=== PATIENT | male | born 1940 | race Caucasian/White ===

== ENCOUNTER 2017-07-21 08:31 | Day surgery (SDC) | payer MEDICARE, BC ==
[2017-07-21] MEDS ORDERED: Propofol 200 MG/20 ML SDV IV ONE (08:32)
[2017-07-21] MEDS ORDERED: fentaNYL 100 MCG/2 ML SDV IV ONE (08:32)
[2017-07-21] MEDS ORDERED: Ondansetron 4 MG/2 ML SDV IV ONE (08:32)
[2017-07-21] MEDS ORDERED: Midazolam 1 MG/ML 2 ML SDV IV ONE (08:32)
[2017-07-21] MEDS ORDERED: Glycopyrrolate 0.2 MG/ML 2 ML SDV IV ONE (08:32)
[2017-07-21] MEDS ORDERED: Lactated Ringers 1,000 ML IV SCH (09:00)
[2017-07-21] MEDS ORDERED: Scopolamine 1.5 MG Transdermal Patch TRDERM ONE (09:30)
[2017-07-21] MEDS ORDERED: Scopolamine 1.5 MG Transdermal Patch ONE (09:35)
[2017-07-21] MEDS ORDERED: Famotidine 20 MG/2 ML SDV IVPUSH ONE (09:47)
[2017-07-21] MEDS ORDERED: Famotidine 20 MG/2 ML SDV ONE (09:53)
[2017-07-21] MEDS ORDERED: ceFAZolin 1 GM in Premix Bag 1 BAG IV ONE (10:00)
[2017-07-21] MEDS ORDERED: Lidocaine 1% 30 ML SDV ONE ×2 (10:11→10:14)
[2017-07-21] MEDS ORDERED: Lidocaine 1% 30 ML SDV INJECT ONE ×2 (10:42→11:11)
[2017-07-21] MEDS ORDERED: Acetaminophen/oxyCODONE 325-5 MG Tab PO PRN (12:55)
[2017-07-21 14:22] VITALS: BP 154/89
--- NOTE | 2017-07-21 19:44 | OR ---
DATE: 07/21/2017 PREOPERATIVE DIAGNOSIS: Right inguinal hernia. POSTOPERATIVE DIAGNOSIS: Right inguinal hernia. PROCEDURES: Open repair of indirect right inguinal hernia. ANESTHESIA: General. ESTIMATED BLOOD LOSS: Minimal. SPECIMEN: Hernia sac. INDICATION FOR PROCEDURE: This 77-year-old male has a symptomatic right inguinal hernia. He has had this for several months. It shows no signs of incarceration. This is a primary hernia. DESCRIPTION OF PROCEDURE: After adequate preparation of right lower quadrant, incision was made over the inguinal canal and carried down through the external oblique. The cord structures and hernia sac were elevated out of the inguinal canal and the hernia sac was dissected free from the cord structures down to the deep inguinal ring. At that point, a clamp was placed across the base of the hernia sac and the distal sac amputated. The hernia sac was then closed using a Vicryl stick tie suture. A piece of Prolene mesh was fashioned to fit it over the inguinal floor. This was fixated to the inguinal ligament with a running 0 Prolene suture and interrupted Prolene sutures for the superior aspect on the rectus sheath. The keyhole had been cut in the mesh and the tails were encircled around the cord structures, as it came through the deep ring, 1 stay suture was closed used to close the keyhole laterally. No abnormalities otherwise were noted. The external oblique was closed over the inguinal canal and cord. The Isidro fascia was closed with an intracuticular Vicryl used for the skin. [facility] /[id number]
--- NOTE | 2017-07-24 15:41 | EKG ---
DATE: 07/21/2017 This 12-lead EKG shows a normal sinus rhythm with a ventricular rate of 65. Normal axis and intervals. No acute ST-segment or T-wave changes. [facility] /[id number]
== END 2017-07-21 14:46 | disposition home or self-care (01) ==
LOC: DL.SDS 08:31
PROVIDERS: ATTEND Surgery
DX: K40.90 Unilateral inguinal hernia, without obstruction or gangrene, not specified as recurrent (principal); Z79.82 Long term (current) use of aspirin; Z79.899 Other long term (current) drug therapy
CPT/HCPCS: 49505; A9270; J0690; J2250; J2405; J2704; J3010; J7120; 00832; 88302; C1781; J3490; S0028

== ENCOUNTER 2017-07-22 22:20 | Emergency (ER) | payer MEDICARE, BC ==
[2017-07-22 22:38] VITALS: BP 118/84
--- NOTE | 2017-07-22 22:49 | EDM.PDOC ---
ED HPI GENERAL MEDICAL PROBLEM - General Chief Complaint: Gastrointestinal Problem Stated Complaint: CONSTIPATED [id number] Time Seen by Provider: 07/22/17 22:35 Source of Information: Reports: Patient History Limitations: Reports: No Limitations - History of Present Illness INITIAL COMMENTS - FREE TEXT/NARRATIVE: ED with complaint of severe abdominal pain with voiting. Reports recent hernia surgery. Constipated, Today has been trying multiple laxative thourghout the day and pain keeps getting worse. Abdomen Pain Score (Numeric/FACES): 10 - Related Data Allergies Allergy/AdvReac Type Severity Reaction Status Date / Time No Known Allergies Allergy Verified 07/21/17 09:06 Home Meds: Home Meds Calcium Carbonate/Vitamin D3 [Calcium 500 + Vit D 200 Tablet] 1 tab PO .QOD [History] Multivitamin with Minerals [Multiple Vitamin] 1 tab PO .QOD 11/01/13 [History] Pantoprazole [Protonix] 40 mg PO BID 11/01/13 [History] atorvaSTATin [Lipitor] 1 tab PO BEDTIME 11/01/13 [History] Ibuprofen 1 tab PO Q6H PRN 09/20/15 [History] Finasteride [Finasteride] 1 tab PO BEDTIME 06/24/17 [History] Meclizine [Antivert] 1 tab PO ASDIRECTED PRN 07/21/17 [History] Past Medical History HEENT History: Reports: Cataract, Hard of Hearing, Impaired Vision, Other (See Below) Other HEENT History: MENIARI'S DISEASE. WEARS CORRECTIVE LENS Cardiovascular History: Reports: High Cholesterol Respiratory History: Reports: None Gastrointestinal History: Reports: GERD Genitourinary History: Reports: BPH, Prostate Disorder Musculoskeletal History: Reports: Arthritis, Osteoarthritis, Other (See Below) Other Musculoskeletal History: carpal tunnel syndrome Neurological History: Reports: None Psychiatric History: Reports: None Endocrine/Metabolic History: Reports: None Hematologic History: Reports: None Immunologic History: Reports: None Oncologic (Cancer) History: Reports: None Dermatologic History: Reports: None - Infectious Disease History Infectious Disease History: Reports: Chicken Pox, Measles, Mumps - Past Surgical History HEENT Surgical History: Reports: None Cardiovascular Surgical History: Reports: None Respiratory Surgical History: Reports: None GI Surgical History: Reports: Colonoscopy, EGD, Hernia Repair/Other Male Surgical History: Reports: Vasectomy Endocrine Surgical History: Reports: None Neurological Surgical History: Reports: None Musculoskeletal Surgical History: Reports: Shoulder Surgery, Other (See Below) Other Musculoskeletal Surgeries/Procedures:: carpal tunnel Oncologic Surgical History: Reports: None Dermatological Surgical History: Reports: None Social & Family History - Tobacco Use Smoking Status *Q: Never Smoker Second Hand Smoke Exposure: No - Caffeine Use Caffeine Use: Reports: Soda Caffeine Use Comment: SOFT DRINKS - DRINKS SUGAR FREEE DRINKS - Alcohol Use Days Per Week of Alcohol Use: 4 Number of Drinks Per Day: 2 Total Drinks Per Week: 8 - Recreational Drug Use Recreational Drug Use: No Drug Use in Last 12 Months: No ED ROS GENERAL - Review of Systems Review Of Systems: See Below Constitutional: Reports: No Symptoms HEENT: Reports: No Symptoms Respiratory: Reports: No Symptoms Cardiovascular: Reports: No Symptoms GI/Abdominal: Reports: Abdominal Pain, Distension, Nausea, Vomiting : Reports: No Symptoms Skin: Reports: Other (right hernia inscision) ED EXAM, GI/ABD - Physical Exam Exam: See Below Exam Limited By: No Limitations General Appearance: Alert Ears: Normal External Exam, Normal TMs Nose: Normal Inspection Throat/Mouth: Normal Inspection Head: Atraumatic, Normocephalic Neck: Normal Inspection Respiratory/Chest: No Respiratory Distress, Lungs Clear, Normal Breath Sounds, Chest Non-Tender Cardiovascular: Normal Peripheral Pulses, Regular Rate, Rhythm GI/Abdominal Exam: Distended, Guarding, Tender, Abnormal Bowel Sounds ( hyperactive) Back Exam: Normal Inspection Extremities: Normal Inspection Neurological: Alert, Oriented, Normal Cognition Psychiatric: Anxious Skin Exam: Warm, Dry, Other (surgical dressing right inguinal intact dry) Course - Vital Signs Last Recorded V/S: Last Vital Signs Temp 98.1 F 07/22/17 22:34 Pulse 88 07/22/17 22:34 Resp 18 07/22/17 22:34 BP 118/84 07/22/17 22:34 Pulse Ox 98 07/22/17 22:34 - Orders/Labs/Meds Orders: Active Orders 24 hr Category Date Time Status Enema [RC] ASDIRECTED Care 07/23/17 00:05 Active NG [Nasogastric Orogastric Tube Insertion] [OM.PC] Oth 07/22/17 23:09 Ordered Routine Labs: Laboratory Tests 07/22/17 07/22/17 Range/Units 23:12 23:12 WBC 17.4 H (5.0-10.0) 10^3/uL RBC 4.67 (4.6-6.2) 10^6/uL Hgb 15.3 (14.0-18.0) g/dL Hct 44.5 (40.0-54.0) % MCV 95.3 (80-100) fL MCH 32.8 (27.0-34.0) pg MCHC 34.4 (33.0-35.0) g/dL Plt Count 285 (150-450) 10^3/uL Neut % (Auto) 82.9 H (42.2-75.2) % Lymph % (Auto) 8.5 L (20.5-50.1) % [place] % (Auto) 8.2 H (2-8) % Eos % (Auto) 0.2 L (1.0-3.0) % Baso % (Auto) 0.2 (0.0-1.0) % Sodium 134 L (135-145) mmol/L Potassium 4.1 (3.6-5.0) mmol/L Chloride 98 L (101-111) mmol/L Carbon Dioxide 24.0 (21.0-31.0) mmol/L Anion Gap 16.1 BUN 20 H (7-18) mg/dL Creatinine 0.9 (0.6-1.3) mg/dL Est Cr Clr Drug Dosing 63.70 mL/min Estimated GFR (MDRD) > 60 BUN/Creatinine Ratio 22.22 Glucose 147 H (74-105) mg/dL Calcium 9.6 (8.4-10.2) mg/dl Total Bilirubin 0.5 (0.2-1.0) mg/dL AST 24 (10-42) IU/L ALT 16 (10-60) IU/L Alkaline Phosphatase 65 (42-121) IU/L Total Protein 7.8 (6.7-8.2) g/dl Albumin 4.4 (3.2-5.5) g/dl Globulin 3.4 Albumin/Globulin Ratio 1.29 Meds: Medications Discontinued Medications Generic Name Dose Route Start Last Admin Trade Name Freq PRN Reason Stop Dose Admin Morphine Sulfate 2 mg 07/22/17 23:07 07/22/17 23:19 Morphine IVPUSH 07/22/17 23:08 2 mg ONETIME ONE Administration Ondansetron HCl 4 mg 07/22/17 23:04 07/22/17 23:17 Zofran IV 07/22/17 23:05 4 mg ONETIME ONE Administration - Radiology Interpretation Free Text/Narrative:: Xray Abdomen: moderate amount stool throughout - Re-Assessments/Exams Free Text/Narrative Re-Assessment/Exam: 07/23/17 03:49 NG placed briefly with relief of upper gastric pressure, Radiologist report of xray confirm no ilieus or obstruction, To nursing floor for enemas with maribell results, Pain resolved, minimal cramping. Departure - Departure Time of Disposition: 00:53 Disposition: Home, Self-Care 01 Condition: Good Clinical Impression: Constipation, Abdominal pain - Discharge Information Instructions: Constipation, Adult, [id number] Referrals: PCP,None [Primary Care Provider] - Forms: ED Department Discharge Additional Instructions: light diet advance slowly miralax one capful daily with at least 8 ounces of liquid daily, if loose stools may decrease follow up if vomiting worsening abdominal pain - My Orders Last 24 Hours: My Active Orders 07/22/17 23:09 NG [Nasogastric Orogastric Tube Insertion] [OM.PC] Routine 07/23/17 00:05 Enema [RC] ASDIRECTED - Assessment/Plan Last 24 Hours: My Active Orders 07/22/17 23:09 NG [Nasogastric Orogastric Tube Insertion] [OM.PC] Routine 07/23/17 00:05 Enema [RC] ASDIRECTED
[2017-07-22] MEDS ORDERED: Ondansetron 4 MG/2 ML SDV IV ONE (23:04)
[2017-07-22] MEDS ORDERED: Morphine 2 MG/ML Syringe IVPUSH ONE (23:07)
[2017-07-22 23:39] LABS: CHLORIDE,CL 98 mmol/L (101-111); SODIUM,NA 134 mmol/L (135-145)
== END 2017-07-23 01:05 | disposition home or self-care (01) ==
LOC: DL.ED 22:20
DX: K59.00 Constipation, unspecified (principal); E78.00 Pure hypercholesterolemia, unspecified; K21.9 Gastro-esophageal reflux disease without esophagitis
CPT/HCPCS: 36415; 43752; 74018; 80053; 85025; 96374; 96375; 99284; J2270; J2405

== ENCOUNTER 2018-07-23 15:01 | Emergency (ER) | payer MEDICARE, BC ==
--- NOTE | 2018-07-23 15:12 | EDM.PDOC ---
ED HPI GENERAL MEDICAL PROBLEM - General Chief Complaint: Neurological Problem Stated Complaint: CONFUSIONS,FORGETFULNESS [id number] Time Seen by Provider: 07/23/18 15:09 Source of Information: Reports: Patient, Family, Old Records, RN, RN Notes Reviewed History Limitations: Reports: No Limitations - History of Present Illness INITIAL COMMENTS - FREE TEXT/NARRATIVE: Pt presents from home by POV brought by with c/o confusion and forgetfulness that began today at 0930HRS and lasted a couple of hours. The pt states he knew something wasn't right, but his does not think he realized how profound his confusion and memory loss was. By the time they decided to come to the ER the symptoms had completely resolved. He reports a similar episode occurred around giving, but did not last this long and he did not seek treatment in the ER at that time. Pt denies headache, chest pain, palpitations, rapid HR, nausea, visual changes, slurred speech, facial droop, or difficulty swallowing. He has history of Menieres Disease. Duration: Constant Location: Reports: Generalized Severity: Moderate Improves with: Reports: None Worsens with: Reports: None Associated Symptoms: Reports: No Other Symptoms - Related Data Allergies Allergy/AdvReac Type Severity Reaction Status Date / Time No Known Allergies Allergy Verified 07/23/18 15:41 Home Meds: Home Meds Pantoprazole [Protonix] 40 mg PO BID 11/01/13 [History] atorvaSTATin [Lipitor] 1 tab PO BEDTIME 11/01/13 [History] Past Medical History HEENT History: Reports: Cataract, Hard of Hearing, Impaired Vision, Other (See Below) Other HEENT History: MENIERE'S DISEASE. WEARS CORRECTIVE LENS Cardiovascular History: Reports: High Cholesterol Respiratory History: Reports: None Gastrointestinal History: Reports: GERD Genitourinary History: Reports: BPH, Prostate Disorder Musculoskeletal History: Reports: Arthritis, Osteoarthritis, Other (See Below) Other Musculoskeletal History: carpal tunnel syndrome Neurological History: Reports: None Psychiatric History: Reports: None Endocrine/Metabolic History: Reports: None Hematologic History: Reports: None Immunologic History: Reports: None Oncologic (Cancer) History: Reports: None Dermatologic History: Reports: None - Infectious Disease History Infectious Disease History: Reports: Chicken Pox, Measles, Mumps - Past Surgical History HEENT Surgical History: Reports: None Cardiovascular Surgical History: Reports: None Respiratory Surgical History: Reports: None GI Surgical History: Reports: Colonoscopy, EGD, Hernia Repair/Other Male Surgical History: Reports: Vasectomy Endocrine Surgical History: Reports: None Neurological Surgical History: Reports: None Musculoskeletal Surgical History: Reports: Shoulder Surgery, Other (See Below) Other Musculoskeletal Surgeries/Procedures:: carpal tunnel Oncologic Surgical History: Reports: None Dermatological Surgical History: Reports: None Social & Family History - Family History Family Medical History: Noncontributory - Tobacco Use Smoking Status *Q: Never Smoker - Caffeine Use Caffeine Use: Reports: Soda Caffeine Use Comment: SOFT DRINKS - DRINKS SUGAR FREEE DRINKS - Alcohol Use Alcohol Use History: No - Living Situation & Occupation Living situation: Reports: , with Spouse Occupation: Retired ED ROS GENERAL - Review of Systems Review Of Systems: ROS reveals no pertinent complaints other than HPI. ED EXAM, GENERAL - Physical Exam Exam: See Below Exam Limited By: No Limitations General Appearance: Alert, WD/WN, No Apparent Distress Eye Exam: Bilateral Eye: EOMI, Normal Inspection, PERRL Ears: Normal External Exam Nose: Normal Inspection, Normal Mucosa, No Blood Throat/Mouth: Normal Inspection, Normal Lips, Normal Oropharynx, Normal Voice, No Airway Compromise Head: Atraumatic, Normocephalic Neck: Normal Inspection, Supple, Non-Tender, Full Range of Motion. No: Carotid Bruit, Lymphadenopathy (L), Lymphadenopathy (R) Respiratory/Chest: No Respiratory Distress, Lungs Clear, Normal Breath Sounds, No Accessory Muscle Use, Chest Non-Tender Cardiovascular: Normal Peripheral Pulses, Regular Rate, Rhythm, No Edema, No Gallop, No JVD, No Murmur, No Rub GI/Abdominal: Normal Bowel Sounds, Soft, Non-Tender, No Distention, No Abnormal Bruit (Male) Exam: Deferred Rectal (Males) Exam: Deferred Back Exam: Normal Inspection, Full Range of Motion, NT Extremities: Normal Inspection, Normal Range of Motion, Non-Tender, Normal Capillary Refill, No Pedal Edema Neurological: Alert, Oriented, CN II-XII Intact, Normal Cognition, Normal Gait, Normal Reflexes, No Motor/Sensory Deficits Psychiatric: Normal Affect, Normal Mood Skin Exam: Warm, Dry, Intact, Normal Color, No Rash EKG INTERPRETATION EKG Date: 07/23/18 Time: 15:52 Rhythm: Other (Sinus rhythm) Rate (Beats/Min): 75 [place]: Normal P-Wave: Present QRS: Other (PVC) ST-T: Normal QT: Normal Comparison: NA - No Prior EKG Course - Vital Signs Last Recorded V/S: Last Vital Signs Temp 36.6 C 07/23/18 15:15 Pulse 82 07/23/18 15:15 Resp 16 07/23/18 15:15 BP 142/82 H 07/23/18 15:15 Pulse Ox 97 07/23/18 15:15 - Orders/Labs/Meds Orders: Active Orders 24 hr Category Date Time Status Blood Glucose Check, Bedside [RC] ONETIME Care 07/23/18 15:21 Active EKG 12 Lead [EKG Documentation Completion] [RC] STAT Care 07/23/18 15:21 Active INR,PT,PROTHROMBIN TIME [COAG] Stat Lab 07/23/18 15:29 Received PTT,PARTIAL THROMBOPLSTIN TIME [COAG] Stat Lab 07/23/18 15:29 Received Labs: Laboratory Tests 07/23/18 07/23/18 07/23/18 Range/Units 15:21 15:21 15:29 WBC 7.6 (5.0-10.0) 10^3/uL RBC 4.41 L (4.6-6.2) 10^6/uL Hgb 14.6 (14.0-18.0) g/dL Hct 41.9 (40.0-54.0) % MCV 95.0 (80-100) fL MCH 33.1 (27.0-34.0) pg MCHC 34.8 (33.0-35.0) g/dL Plt Count 288 (150-450) 10^3/uL Neut % (Auto) 70.2 (42.2-75.2) % Lymph % (Auto) 16.2 L (20.5-50.1) % [place] % (Auto) 11.6 H (2-8) % Eos % (Auto) 1.7 (1.0-3.0) % Baso % (Auto) 0.3 (0.0-1.0) % Sodium (135-145) mmol/L Potassium (3.6-5.0) mmol/L Chloride (101-111) mmol/L Carbon Dioxide (21.0-31.0) mmol/L Anion Gap BUN (7-18) mg/dL Creatinine (0.6-1.3) mg/dL Est Cr Clr Drug Dosing Estimated GFR (MDRD) BUN/Creatinine Ratio Glucose (74-105) mg/dL POC Glucose (83-110) mg/dl Calcium (8.4-10.2) mg/dl Total Bilirubin (0.2-1.0) mg/dL AST (10-42) IU/L ALT (10-60) IU/L Alkaline Phosphatase (42-121) IU/L Troponin I (0.00-0.02) ng/ml Total Protein (6.7-8.2) g/dl Albumin (3.2-5.5) g/dl Globulin Albumin/Globulin Ratio Urine Color Yellow (YELLOW) Urine Appearance Slightly cloudy (CLEAR) Urine pH 5.5 (5.0-9.0) Ur Specific [place] 1.020 (1.005-1.030) Urine Protein Negative (NEGATIVE) Urine Glucose (UA) Negative (NEGATIVE) Urine Ketones Negative (NEGATIVE) Urine Occult Blood Trace-intact H (NEGATIVE) Urine Nitrite Negative (NEGATIVE) Urine Bilirubin Negative (NEGATIVE) Urine Urobilinogen 0.2 (0.2-1.0) mg/dL Ur Leukocyte Esterase Negative (NEGATIVE) Urine RBC 0-5 /HPF Urine WBC Not seen (0-5/HPF) /HPF Ur Epithelial Cells Rare /HPF Urine Bacteria Rare (0-FEW/HPF) /HPF Urine Mucus Few H /LPF Urine Opiates Screen Negative (NEGATIVE) Ur Oxycodone Screen Negative (NEGATIVE) Urine Methadone Screen Negative (NEGATIVE) Ur Barbiturates Screen Negative (NEGATIVE) U Tricyclic Antidepress Negative (NEGATIVE) Ur Phencyclidine Scrn Negative (NEGATIVE) Ur Amphetamine Screen Negative (NEGATIVE) U Methamphetamines Scrn Negative (NEGATIVE) Urine MDMA Screen Negative (NEGATIVE) U Benzodiazepines Scrn Negative (NEGATIVE) Urine Cocaine Screen Negative (NEGATIVE) U Marijuana (THC) Screen Negative (NEGATIVE) 07/23/18 07/23/18 Range/Units 15:29 15:33 WBC (5.0-10.0) 10^3/uL RBC (4.6-6.2) 10^6/uL Hgb (14.0-18.0) g/dL Hct (40.0-54.0) % MCV (80-100) fL MCH (27.0-34.0) pg MCHC (33.0-35.0) g/dL Plt Count (150-450) 10^3/uL Neut % (Auto) (42.2-75.2) % Lymph % (Auto) (20.5-50.1) % [place] % (Auto) (2-8) % Eos % (Auto) (1.0-3.0) % Baso % (Auto) (0.0-1.0) % Sodium 136 (135-145) mmol/L Potassium 3.8 (3.6-5.0) mmol/L Chloride 103 (101-111) mmol/L Carbon Dioxide 23.0 (21.0-31.0) mmol/L Anion Gap 13.8 BUN 19 H (7-18) mg/dL Creatinine 0.9 (0.6-1.3) mg/dL Est Cr Clr Drug Dosing TNP Estimated GFR (MDRD) > 60 BUN/Creatinine Ratio 21.11 Glucose 112 H (74-105) mg/dL POC Glucose 105 (83-110) mg/dl Calcium 9.2 (8.4-10.2) mg/dl Total Bilirubin 0.7 (0.2-1.0) mg/dL AST 23 (10-42) IU/L ALT 18 (10-60) IU/L Alkaline Phosphatase 66 (42-121) IU/L Troponin I < 0.02 (0.00-0.02) ng/ml Total Protein 7.4 (6.7-8.2) g/dl Albumin 4.3 (3.2-5.5) g/dl Globulin 3.1 Albumin/Globulin Ratio 1.39 Urine Color (YELLOW) Urine Appearance (CLEAR) Urine pH (5.0-9.0) Ur Specific [place] (1.005-1.030) Urine Protein (NEGATIVE) Urine Glucose (UA) (NEGATIVE) Urine Ketones (NEGATIVE) Urine Occult Blood (NEGATIVE) Urine Nitrite (NEGATIVE) Urine Bilirubin (NEGATIVE) Urine Urobilinogen (0.2-1.0) mg/dL Ur Leukocyte Esterase (NEGATIVE) Urine RBC /HPF Urine WBC (0-5/HPF) /HPF Ur Epithelial Cells /HPF Urine Bacteria (0-FEW/HPF) /HPF Urine Mucus /LPF Urine Opiates Screen (NEGATIVE) Ur Oxycodone Screen (NEGATIVE) Urine Methadone Screen (NEGATIVE) Ur Barbiturates Screen (NEGATIVE) U Tricyclic Antidepress (NEGATIVE) Ur Phencyclidine Scrn (NEGATIVE) Ur Amphetamine Screen (NEGATIVE) U Methamphetamines Scrn (NEGATIVE) Urine MDMA Screen (NEGATIVE) U Benzodiazepines Scrn (NEGATIVE) Urine Cocaine Screen (NEGATIVE) U Marijuana (THC) Screen (NEGATIVE) - Radiology Interpretation Free Text/Narrative:: CT head: No sign of acute intracranial bleed. Microvascular ischemic changes and mild atrophy. No intracranial mass. No hydrocephalus. See rad report. Departure - Departure Time of Disposition: 16:44 Disposition: Home, Self-Care 01 Condition: Good Clinical Impression: TIA (transient ischemic attack), Transient global amnesia - Discharge Information *PRESCRIPTION DRUG MONITORING PROGRAM REVIEWED*: Not Applicable *COPY OF PRESCRIPTION DRUG MONITORING REPORT IN PATIENT MAYKEL: Not Applicable Instructions: Transient Global Amnesia, Stroke Prevention Forms: ED Department Discharge Additional Instructions: Take 'Enteric Coated Aspirin 325mg' one tablet every day. Call your neurologist at [facility] in [place] tomorrow to schedule an appointment for recheck and further stroke risk assessment. Return to ER if worse at any time. - My Orders Last 24 Hours: My Active Orders 07/23/18 15:21 Blood Glucose Check, Bedside [RC] ONETIME EKG 12 Lead [EKG Documentation Completion] [RC] STAT 07/23/18 15:29 INR,PT,PROTHROMBIN TIME [COAG] Stat PTT,PARTIAL THROMBOPLSTIN TIME [COAG] Stat - Assessment/Plan Last 24 Hours: My Active Orders 07/23/18 15:21 Blood Glucose Check, Bedside [RC] ONETIME EKG 12 Lead [EKG Documentation Completion] [RC] STAT 07/23/18 15:29 INR,PT,PROTHROMBIN TIME [COAG] Stat PTT,PARTIAL THROMBOPLSTIN TIME [COAG] Stat
[2018-07-23 15:16] VITALS: BP 142/82
[2018-07-23 15:58] LABS: ANION GAP 13.8; CHLORIDE,CL 103 mmol/L (101-111); SODIUM,NA 136 mmol/L (135-145)
--- NOTE | 2018-07-23 16:21 | CT ---
Clinical history: 78-year-old male with acute onset of confusion. CVA? No previous CT or MRI exams of the head at this institution. Scan technique: Volume acquisition of data emergency unenhanced CT scan of the head and brain obtained while the patient was lying supine on the Siemens multi slice scanner [place], [place]. All data archived in the PACS system for storage, reformatting axial/sagittal/coronal planes and study. Interpretation: 1. Uniformly thick bony calvarium without sign of skull fracture or underlying brain contusion or epidural/subdural hematoma. 2. Subtle microvascular ischemic changes periventricular white matter particularly frontal parietal lobe on the left. 3. No sign of acute intracerebral/intraventricular/subarachnoid bleed. 4. No supratentorial or posterior fossa mass lesion. 5. Cerebellum and brainstem unremarkable.. CONCLUSION: No sign of acute intracranial bleed. Microvascular ischemic changes and mild atrophy. No intracranial mass. No hydrocephalus.
== END 2018-07-23 16:55 | disposition home or self-care (01) ==
LOC: DL.ED 15:01
DX: G45.4 Transient global amnesia (principal)
CPT/HCPCS: 36415; 70450; 80053; 80305-QW; 81001; 82962; 84484; 85025; 85610; 85730; 93005; 99284

== ENCOUNTER 2018-09-30 07:30 | Day surgery (SDC) | payer MEDICARE, BC ==
[~2018-09-30 07:30] MED LIST: Acetaminophen 325 MG Tab PO PRN; Cataract Ophth Solution EYERT ONE; Moxifloxacin 0.5% Ophth Soln 3 ML Bottle EYERT ONE; Ondansetron 4 MG/2 ML SDV IVPUSH PRN; Phenylephrine 10% Ophth Soln 5 ML Bot EYERT ONE; Phenylephrine 10% Ophth Soln 5 ML Bot EYERT PRN; Povidone-Iodine 5% Sterile Ophth Soln 30 ML Bottle EYERT ONE; Proparacaine 0.5% Ophth Soln 15 ML Bottle EYERT ONE; Sodium Chloride 0.9% 10 ML Syringe FLUSH PRN; Timolol Maleate 0.5% Ophth Soln 5 ML Bottle EYERT ONE
[2018-09-30] MEDS ORDERED: Midazolam 1 MG/ML 2 ML SDV IV ONE (07:31)
[2018-09-30] MEDS ORDERED: Sodium Chloride 0.9% 10 ML Syringe IV ONE (07:31)
[2018-09-30] MEDS ORDERED: Dexamethasone 4 MG/ML SDV IV ONE (07:31)
[2018-09-30] MEDS ORDERED: Tetracaine HCl/PF 0.5% 4 ML Bottle EYERT ONE (09:00)
[2018-09-30] MEDS ORDERED: Povidone-Iodine 5% Sterile Ophth Soln 30 ML Bottle EYERT ONE (09:01)
[2018-09-30] MEDS ORDERED: Lidocaine 1% 30 ML SDV ONE (09:01)
[2018-09-30] MEDS ORDERED: Apraclonidine 0.5% Ophth Soln 5 ML Bot EYERT ONE (09:01)
[2018-09-30] MEDS ORDERED: Chondroitin Sulfate/Hyaluronate Sodium Ophth Inj 0.75 ML Syringe EYERT ONE (09:02)
[2018-09-30] MEDS ORDERED: Balanced Salt Solution Ophth Irrig 500 ML Bottle EYERT ONE (09:02)
[2018-09-30] MEDS ORDERED: Diclofenac Sodium 0.1% Ophth Soln 5 ML Bottle EYERT ONE (09:02)
[2018-09-30] MEDS ORDERED: Dexamethasone/Neomycin/Polymyxin B Ophth Oint 3.5 GM Tube EYERT ONE (09:02)
[2018-09-30] MEDS ORDERED: Vancomycin 500 MG SDV EYERT ONE (09:03)
--- NOTE | 2018-09-30 09:30 | OR ---
DATE: 09/30/2018 PREOPERATIVE DIAGNOSIS: Visually significant mixed cataract, right eye. POSTOPERATIVE DIAGNOSIS: Visually significant mixed cataract, right eye. PROCEDURE: Extracapsular cataract extraction with intraocular lens implant, right eye. ANESTHESIA: Topical/local MAC. COMPLICATIONS: None. INDICATION: Mr. Boyd was seen in the clinic, complained of blurred vision and difficulty looking through a hunting scope, and he is unhappy with his vision. Clinical examination reveals visually significant mixed cataract. I explained options; offered cataract surgery; and I explained risks including but not limited to infection, retinal detachment, and loss of vision amongst others. We discussed implant options. He has requested surgery with a monofocal implant. He is comfortable wearing glasses following surgery if necessary. OPERATIVE DESCRIPTION: After informed consent was obtained and the risks, benefits, and alternatives were explained, the patient was brought to the operative suite and topical anesthesia was administered. The patient was then prepped and draped in the sterile fashion, and attention was placed on the right eye. A sterile lid speculum was placed into the right eye to allow operative exposure. A full-thickness paracentesis was made in the temporal portion of the operative eye. Preservative-free lidocaine 0.1 mL was injected into the anterior chamber followed by viscoelastic. A full-thickness corneal incision was then made into the anterior chamber. A bent needle cystotome was used to create a small alexus in the anterior capsule. The capsulorrhexis forceps was then used to create a 360-degree curvilinear capsulorrhexis. The nucleus was then removed using a phacoemulsification handpiece, and the remaining cortical material was then removed with irrigation and aspiration handpiece. Following removal of the cortical material, the capsular bag was then inspected and noted to be free of any holes or tears. Viscoelastic was then injected into the capsular bag, and the intraocular lens was inserted into the capsular bag. The viscoelastic material was then removed from both the anterior and posterior chambers and from behind the IOL. The lens and capsular bag were then reinspected. The IOL was well centered and the capsular bag intact. The wound and paracentesis sites were inspected and hydrated with balanced saline solution. Both were found to be self-sealing. The intraocular pressure was assessed digitally and found to be within normal range. A good red reflex was noted at the completion of the procedure. No complications occurred during the operation. At the completion of the procedure, Annmarie Polo, and Iopidine drops were placed into the operative eye. A sterile eye shield was placed over the operative eye, and the patient was transported to the postoperative recovery area having tolerated the procedure well. Postoperative instructions were given along with a postoperative appointment. The patient was advised to call with any questions or concerns. [facility] /[id number]
[2018-09-30 09:38] VITALS: BP 125/75
== END 2018-09-30 09:54 | disposition home or self-care (01) ==
LOC: DL.SDS 07:30
PROVIDERS: ATTEND Ophthalmology
DX: H25.811 Combined forms of age-related cataract, right eye (principal); E78.5 Hyperlipidemia, unspecified; N40.0 Benign prostatic hyperplasia without lower urinary tract symptoms; K21.9 Gastro-esophageal reflux disease without esophagitis; Z87.891 Personal history of nicotine dependence; Z79.82 Long term (current) use of aspirin; Z79.899 Other long term (current) drug therapy
CPT/HCPCS: 66984; A9270; C1780; J1100; J2001; J2250; J3370

== ENCOUNTER 2018-10-07 07:29 | Day surgery (SDC) | payer MEDICARE, BC ==
[2018-10-07] MEDS ORDERED: Ondansetron 4 MG/2 ML SDV IVPUSH PRN (07:30)
[2018-10-07] MEDS ORDERED: Phenylephrine 10% Ophth Soln 5 ML Bot EYELF PRN (07:30)
[2018-10-07] MEDS ORDERED: Moxifloxacin 0.5% Ophth Soln 3 ML Bottle EYELF ONE (07:30)
[2018-10-07] MEDS ORDERED: Proparacaine 0.5% Ophth Soln 15 ML Bottle EYELF ONE (07:30)
[2018-10-07] MEDS ORDERED: Cataract Ophth Solution EYELF ONE (07:30)
[2018-10-07] MEDS ORDERED: Sodium Chloride 0.9% 10 ML Syringe FLUSH PRN (07:30)
[2018-10-07] MEDS ORDERED: Povidone-Iodine 5% Sterile Ophth Soln 30 ML Bottle EYELF ONE (07:30)
[2018-10-07] MEDS ORDERED: Phenylephrine 10% Ophth Soln 5 ML Bot EYELF ONE (07:30)
[2018-10-07] MEDS ORDERED: Timolol Maleate 0.5% Ophth Soln 5 ML Bottle EYELF ONE (07:30)
[2018-10-07] MEDS ORDERED: Acetaminophen 325 MG Tab PO PRN (07:30)
[2018-10-07 07:48] VITALS: BP 112/59
== END 2018-10-07 08:35 | disposition home or self-care (01) ==
LOC: DL.SDS 07:29
PROVIDERS: ATTEND Ophthalmology
DX: H26.9 Unspecified cataract (principal); Z53.8 Procedure and treatment not carried out for other reasons